=== PATIENT | male | born 2000 | race Caucasian/White ===

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

== ENCOUNTER 2022-04-06 11:27 | Emergency (ER) | payer MEDICAID ==
[~2022-04-06] VITALS: Ht 172.7 cm; Wt 70.3 kg
[~2022-04-06 11:27] MED LIST changes: +ONDA-188 PO
[2022-04-06 11:29] VITALS: BP 155/122
--- NOTE | 2022-04-06 11:32 | NUR ---
PT AMBULATED TO ROOM 6
--- NOTE | 2022-04-06 11:38 | NUR ---
MD SCHWAB AT BEDSIDE FOR EVALUATION
[2022-04-06] MEDS ORDERED: diphenhydrAMINE 50 MG/ML VIAL IVP ONE (11:45)
--- NOTE | 2022-04-06 11:45 | NUR ---
Note undone in EDM - 04/06/22 at 1231 by PHSEP 21YO MALE PT C/O SOB , INCREASED SHARP 7/10 CHEST AND THROAT PAIN XTODAY. PT STATES INITIAL PAIN AND SOB STARTED LAST NIGHT AFTER TAKING NEW OF RX OF METHOCARBAMOL AND NAPROXEN. RX GIVEN FOR RECENT R SHOULDER INJURY. CHEST PAIN CONSTANT W/O RADIATION. THROAT PRESENTS PINK ,CLEAR , -SWELLING. DENIES N/V/D , FEVER OR CHILLS. PT AAOX4, ON MD ALLERGY IMMUNOLOGY. O2 @100% RA HX:STOMACH ULCER ALLERGIES: PENICILLIN , ACETAMINOPHEN
--- NOTE | 2022-04-06 11:45 | NUR ---
21YO MALE PT C/O SOB , INCREASED SHARP 7/10 CHEST AND THROAT PAIN XTODAY. PT STATES INITIAL PAIN AND SOB STARTED LAST NIGHT AFTER TAKING NEW OF RX OF METHOCARBAMOL AND NAPROXEN. RX GIVEN FOR RECENT R SHOULDER INJURY. CHEST PAIN CONSTANT W/O RADIATION. THROAT PRESENTS PINK ,CLEAR , -SWELLING. REPORTS VOMIT X5 TODAY, -BLOOD. DENIES DIARRHEA, FEVER OR CHILLS. 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 O2 @100% RA HX:STOMACH ULCER ALLERGIES: PENICILLIN , ACETAMINOPHEN
[2022-04-06] MEDS ORDERED: NACL 0.9% 1,000 ML IV ONE (11:50)
[2022-04-06] MEDS ORDERED: ONDANSETRON 4 MG/2 ML VIAL ONE (12:12)
[2022-04-06] MEDS ORDERED: ONDANSETRON 4 MG/2 ML VIAL IVP ONE (12:15)
--- NOTE | 2022-04-06 12:15 | NUR ---
pt w/ onset of nausea. md made aware
--- NOTE | 2022-04-06 13:55 | NUR ---
IV removed, catheter intact and site benign. Applied folded 4x4 gauze and tape to stop bleeding.
[2022-04-06 14:00] VITALS: BP 126/88
--- NOTE | 2022-04-06 14:00 | NUR ---
Patient discharged with v/s stable. Written and verbal after care instructions FOR DRUG ALLERGY given and explained. Patient verbalized understanding. Ambulatory with steady gait. All questions addressed prior to discharge. Advised to follow up with PMD.
--- NOTE | 2022-04-06 14:02 | NUR ---
Chart checked and completed. The patient's care was reviewed and supervised by Francy Dyer RN.
[2022-04-07] MEDS ORDERED: ONDA-188 SL (10:09)
== END 2022-04-06 14:00 | disposition home or self-care (01) ==
LOC: MED 11:27
DX: F41.9 Anxiety disorder, unspecified (principal); T42.8X5A Adverse effect of antiparkinsonism drugs and other central muscle-tone depressants, initial encounter; Z72.89 Other problems related to lifestyle; Y92.89 Other specified places as the place of occurrence of the external cause
CPT/HCPCS: 96365; 96366; 96375; 99284; J1200; J2405

== ENCOUNTER 2022-04-07 06:00 | Emergency (ER) | payer MEDICAID ==
[~2022-04-07] VITALS: Ht 172.7 cm; Wt 70.3 kg
--- NOTE | 2022-04-07 06:12 | NUR ---
RECEIVED IN BED 3 WITH C/O VOMITING SINCE 299.SEEN HERE YESTERDAY FOR SAME COMPLAINT denies pmhx, rx allergies pcn
--- NOTE | 2022-04-07 06:15 | NUR ---
Yudy gallegos in [facility] - 04/07/22 at 0622 by MANI O
--- NOTE | 2022-04-07 06:15 | NUR ---
CONTINUES TO DRY HEAVE. IV ESTABLISHED, FLUID BOLUS BEGUN
[2022-04-07] MEDS ORDERED: diphenhydrAMINE 50 MG/ML VIAL IVP ONE (06:20)
[2022-04-07] MEDS ORDERED: NACL 0.9% 1,000 ML IV ONE (06:20)
[2022-04-07] MEDS ORDERED: METOCLOPRAMIDE 10 MG/2 ML INJ VIAL IVP ONE (06:20)
[2022-04-07] MEDS ORDERED: diphenhydrAMINE 50 MG/ML VIAL ONE (06:24)
[2022-04-07] MEDS ORDERED: MORPHINE SULFATE 4 MG/ML SYR ONE (06:33)
[2022-04-07] MEDS ORDERED: MORPHINE SULFATE 4 MG/ML SYR IVP ONE (06:35)
--- NOTE | 2022-04-07 07:23 | NUR ---
Received report from CAM Camejo. Assumed care at this time.
[2022-04-07 07:35] LABS: BASOPHILS % (AUTO) 0.6 % (0.0-2.0); EOSINOPHILS % (AUTO) 0.5 % (0.0-4.0); HEMATOCRIT 39.1 % (36-52); HEMOGLOBIN 13.8 g/dL (12.0-18.0); LYMPHOCYTES # (AUTO) 1.1 K/uL (2.0-11.5); LYMPHOCYTES % (AUTO) 13.6 % (20.5-51.1); MEAN CORPUSCULAR HEMOGLOBIN 30 pg (27-31); MEAN CORPUSCULAR HGB CONC 35 g/dL (33-37); MEAN CORPUSCULAR VOLUME 84.2 fL (80-94); MONOCYTES # (AUTO) 0.8 K/uL (0.8-1.0); MONOCYTES % (AUTO) 10.3 % (1.7-9.3); NEUTROPHILS # (AUTO) 5.9 K/uL (1.8-7.7); PLATELET COUNT (AUTO) 260 K/uL (140-450); RED BLOOD CELL COUNT(AUTO) 4.65 MIL/uL (4.20-6.10); RED CELL DISTRIBUTION WIDTH 12.6 % (11.6-13.7); WHITE BLOOD COUNT (AUTO) 7.9 K/uL (4.5-11.0)
[2022-04-07 08:19] LABS: ALBUMIN 3.4 g/dL (3.4-5.0); CARBON DIOXIDE 25.7 mmol/L (21-32); MAGNESIUM 1.8 mg/dL (1.8-2.4); POTASSIUM 3.7 mmol/L (3.5-5.1); TOTAL BILIRUBIN 0.5 mg/dL (0.0-1.0)
--- NOTE | 2022-04-07 08:41 | NUR ---
Pt unable to provide urine sample. Dr. Lincoln made aware.
[2022-04-07] MEDS ORDERED: ONDA-188 SL (10:09)
--- NOTE | 2022-04-07 10:10 | NUR ---
pt states he is unable to provide a urine sample at this time
--- NOTE | 2022-04-07 10:13 | NUR ---
Patient discharged with v/s stable. Written and verbal after care instructions given and explained. Patient alert, oriented and verbalized understanding of instructions. Ambulatory with family to car. All questions addressed prior to discharge. ID band removed. Patient advised to follow up with PMD. Rx of zofran (sent) given. Patient educated on indication of medication including possible reaction and side effects. Opportunity to ask questions provided and answered. work note given
[2022-04-07 10:17] VITALS: BP 109/69
== END 2022-04-07 10:13 | disposition home or self-care (01) ==
LOC: MED 06:00
DX: R11.2 Nausea with vomiting, unspecified (principal); F12.90 Cannabis use, unspecified, uncomplicated; Z79.899 Other long term (current) drug therapy; Z88.0 Allergy status to penicillin
CPT/HCPCS: 36415; 71045; 74018; 80053; 83690; 83735; 85025; 96361; 96374; 96375; 99284; J1200; J2270; J2765; J7030; Q0092

== ENCOUNTER 2022-07-12 06:57 | Emergency (ER) | payer MEDICAID ==
[~2022-07-12] VITALS: Ht 172.7 cm; Wt 68.9 kg
[~2022-07-12 06:57] MED LIST changes: +ONDA-188 SL
[2022-07-12 07:00] VITALS: BP 152/106
[2022-07-12] MEDS ORDERED: NACL 0.9% 2,000 ML IV ONE (07:10)
[2022-07-12] MEDS ORDERED: ONDANSETRON 4 MG/2 ML VIAL IVP ONE (07:10)
[2022-07-12] MEDS ORDERED: HALOPERIDOL IM 5 MG/ML VIAL IVP ONE (07:30)
[2022-07-12 08:13] LABS: BASOPHILS % (AUTO) 0.2 % (0.0-2.0); HEMATOCRIT 48.4 % (36-52); HEMOGLOBIN 16.6 g/dL (12.0-18.0); LYMPHOCYTES # (AUTO) 1.3 K/uL (2.0-11.5); LYMPHOCYTES % (AUTO) 5.6 % (20.5-51.1); MEAN CORPUSCULAR HEMOGLOBIN 29 pg (27-31); MEAN CORPUSCULAR HGB CONC 34 g/dL (33-37); MEAN CORPUSCULAR VOLUME 84.2 fL (80-94); MONOCYTES # (AUTO) 1.2 K/uL (0.8-1.0); MONOCYTES % (AUTO) 5.4 % (1.7-9.3); NEUTROPHILS # (AUTO) 19.9 K/uL (1.8-7.7); NEUTROPHILS % (AUTO) 88.8 % (42.2-75.2); PLATELET COUNT (AUTO) 283 K/uL (140-450); RED BLOOD CELL COUNT(AUTO) 5.75 MIL/uL (4.20-6.10); RED CELL DISTRIBUTION WIDTH 13.3 % (11.6-13.7)
[2022-07-12 08:17] LABS: WHITE BLOOD COUNT (AUTO) 22.4 K/uL (4.5-11.0)
[2022-07-12 08:27] LABS: ALBUMIN 5.2 g/dL (3.4-5.0); ANION GAP 15.9 (8-16); CARBON DIOXIDE 27.3 mmol/L (21-32); CREATININE 1.1 mg/dL (0.6-1.3); POTASSIUM 3.2 mmol/L (3.5-5.1); TOTAL BILIRUBIN 1.1 mg/dL (0.0-1.0)
[2022-07-12 08:43] VITALS: BP 135/89
== END 2022-07-12 08:44 | disposition home or self-care (01) ==
LOC: MED 06:57
DX: R11.2 Nausea with vomiting, unspecified (principal); Z79.899 Other long term (current) drug therapy; Z88.0 Allergy status to penicillin
CPT/HCPCS: 36415; 80053; 83690; 85025; 93005; 96361; 96374; 96375; 99284; J1630; J2405; J7030